=== PATIENT | female | born 1960 | race Hispanic/Latino ===

== ENCOUNTER 2017-12-05 02:18 | Day surgery (SDC) | payer OTHER ==
[2017-12-03 14:48] VITALS: BP 150/86
--- NOTE | 2017-12-03 15:04 | PCM.EKG ---
[facility] Test Date: 2017-12-03 Test Time: 15:03:53 Pat Name: ISADORA DOUGLAS Department: [id number] Room: Gender: F Hold Worker: SHAWN : 1960 Requested By: IHSAN KHAN Order Number: [id number] Reading MD: Trevon Chase Measurements Intervals [place] Rate: 70 P: 45 MD: 162 QRS: 36 QRSD: 88 T: 23 QT: 416 QTc: 449 Interpretive Statements Normal sinus rhythm Normal ECG No previous ECG available for comparison Electronically Signed On 12-05-2017 11:26:00 CDT by Trevon Chase Please click the below link to view image of tracing.
[2017-12-03 16:08] LABS: BASOPHIL % 0.2 % (0.0-0.2); EOSINOPHIL # 0.2 10^3/uL (0.0-0.2); EOSINOPHIL % 2.2 % (0.0-5.0); HEMOGLOBIN 13.9 g/dL (12.0-15.0); LYMPHOCYTES # 3.6 10^3/uL (1.0-4.8); LYMPHOCYTES % 36.4 % (24.0-44.0); MEAN CELL HGB 26.3 pg (26-34); MEAN CELL HGB CONCENTRATION 32.6 g/dL (33-37); MEAN CORP VOLUME 80.5 fL (78-100); MEAN PLATELET VOLUME 10.9 fL (7.8-11.0); MONOCYTES # 0.9 10^3/uL (0.3-0.8); MONOCYTES % 8.8 % (5.0-12.0); NEUTROPHIL # 5.1 10^3/uL (1.8-7.7); RED CELL DISTRIBUTION WIDTH 14.2 % (11.5-14.5); WHITE BLOOD CELL 9.7 10^3/uL (4.5-11.0)
[2017-12-03 16:27] LABS: CALCIUM 9.2 mg/dL (8.4-10.5); CARBON DIOXIDE 25.1 mmol/L (20.0-32)
[2017-12-05] VITALS (13 sets, daily range): BP systolic 147–170; BP diastolic 70–95
[~2017-12-05] VITALS: Ht 156.2 cm; Wt 77.1 kg
[~2017-12-05 02:18] MED LIST: INSU100V11 SQ; INSU200I4 SQ; LEVO175T2 PO; LINA5TAB PO; METO25TA4 PO
[2017-12-05] MEDS ORDERED: NS 100ML 100 ML IV ONE ×2 (05:15→07:42)
[2017-12-05] MEDS ORDERED: ANCEF ONE ×2 (05:15→07:42)
[2017-12-05] MEDS ORDERED: LACTATED RINGERS 1,000 ML ONE (05:15)
[2017-12-05] MEDS ORDERED: LACTATED RINGERS 1,000 ML IV SCH ×2 (06:00→08:30)
[2017-12-05] MEDS ORDERED: DECADRON ONE (06:41)
[2017-12-05] MEDS ORDERED: ZOFRAN ONE (06:41)
[2017-12-05] MEDS ORDERED: NEOSTIGMINE ONE (06:41)
[2017-12-05] MEDS ORDERED: ZEMURON IV ONE (06:42)
[2017-12-05] MEDS ORDERED: VERSED ONE (06:42)
[2017-12-05] MEDS ORDERED: DIPRIVAN IV ONE (06:42)
[2017-12-05] MEDS ORDERED: SUBLIMAZE ONE (06:42)
[2017-12-05] MEDS ORDERED: LIDOCAINE 2% VIAL ONE (06:43)
[2017-12-05] MEDS ORDERED: NAROPIN 0.5% 5 MG/ML VIAL ONE (06:43)
[2017-12-05] MEDS ORDERED: CLONIDINE 1,000 MCG/10 ML VIAL EP ONE (06:44)
[2017-12-05] MEDS ORDERED: QUELICIN ONE (06:44)
[2017-12-05] MEDS ORDERED: XYLOCAINE 2%-EPI 1:100,000 ONE (06:58)
[2017-12-05] MEDS ORDERED: NS 3000ML IRR IR ONE (06:58)
[2017-12-05] MEDS ORDERED: SODIUM CHLORIDE IR ONE (06:58)
[2017-12-05] MEDS ORDERED: DILAUDID IV PRN (08:30)
[2017-12-05] MEDS ORDERED: SUBLIMAZE IV PRN (08:30)
[2017-12-05] MEDS ORDERED: PHENERGAN IV PRN (08:30)
[2017-12-05] MEDS ORDERED: ZOFRAN IV PRN (08:30)
[2017-12-05] MEDS ORDERED: TRAM-47 PO (10:07)
--- NOTE | 2017-12-05 11:21 | OPH ---
DATE OF SURGERY: 12/05/2017 PREOPERATIVE DIAGNOSES: 1. Biceps tendinitis of the right shoulder. 2. Partial thickness rotator cuff tear, right shoulder. POSTOPERATIVE DIAGNOSES: 1. Biceps tendinitis, right shoulder. 2. Impingement, right shoulder. OPERATIVE PROCEDURE: 1. Arthroscopy of the right shoulder with an acromioplasty. 2. Biceps tenolysis, right shoulder. SURGEON: Matias Dietrich MD ANESTHESIA: General endotracheal. BLOOD LOSS: 50 mL. DRAINS: None. DESCRIPTION OF INDICATIONS: The patient is a 57-year-old female with a 9-year history of pain about the shoulder. She has had formal physical therapy as well as Advil. She complains of pain at night as well as painful popping, especially with overhead activities. She has full range of motion about the shoulders. There is tenderness about the biceps tendon. Speed's test is positive. She has no weakness. She demonstrates a positive impingement sign. Plain x-rays were negative for any arthritic changes or calcifications. The MRI scan was read out as having a partial thickness tear about the supraspinatus tendon from 25 to 50% as well as some biceps tendinitis about the right shoulder. Because of continued pain, the patient was taken to the operating room for the above procedure. DESCRIPTION OF PROCEDURE: The patient was placed on the operating table in the supine position. A general endotracheal anesthetic was induced without difficulty. The patient was then placed in the beach chair position. The right upper extremity was sterilely prepped and draped. The arthroscope was introduced through a posterior portal. The glenohumeral joint showed some minor arthritic changes about the glenoid. No exposed subchondral bone. There was some fraying of the insertion of the biceps tendon into the glenoid. From the articular side, I could not demonstrate any rotator cuff tears. The labrum was normal. From the anterior portal, the Arthrowand was introduced and a biceps tenolysis was performed of the biceps at the insertion into the superior portion of the glenoid. The patient then had the arthroscope placed in the subacromial position. Through a lateral portal, a bursectomy was performed with the shaver. The Arthrowand was used to clear any soft tissue from the acromion. Arthroscopically, the patient had a type 2-3 acromion. The patient then had a 4 mm herber introduced from the lateral portal. The acromioplasty was performed. The rotator cuff was viewed from the bursal side and I could not demonstrate any full thickness rotator cuff tears. The patient then had the arthroscopic equipment removed from the shoulder. The portal tracts were closed with interrupted 3-0 Ethilon. A sterile Aquacel dressing was applied. The patient was extubated in the operating room, sent to recovery in stable condition. Matias Dietrich MD DR: SHELDON/myles JOB# [id number]
== END 2017-12-05 12:05 | disposition home or self-care (01) | DRG 558 ==
LOC: SDC 02:18
PROVIDERS: ATTEND Orthopaedic Surgery
DX: M75.21 Bicipital tendinitis, right shoulder (principal); M25.811 Other specified joint disorders, right shoulder; I10 Essential (primary) hypertension; E11.9 Type 2 diabetes mellitus without complications; K21.9 Gastro-esophageal reflux disease without esophagitis; E05.90 Thyrotoxicosis, unspecified without thyrotoxic crisis or storm; E66.9 Obesity, unspecified; Z98.890 Other specified postprocedural states; Z83.3 Family history of diabetes mellitus; Z82.49 Family history of ischemic heart disease and other diseases of the circulatory system; Z88.0 Allergy status to penicillin; Z79.899 Other long term (current) drug therapy; Z68.31 Body mass index [BMI] 31.0-31.9, adult
CPT/HCPCS: 29826; 29828; 36415; 64415; 80053; 82948 ×2; 85025; 93005; A4649 ×6; J0330; J0690 ×2; J1100; J2001; J2250; J2405; J2710; J2795; J3010; J3490 ×2; J7030 ×2; J7050 ×2; J7120

== ENCOUNTER → 2018-04-08 | Outpatient (CLI) | payer OTHER ==
[~2018-04-08] MED LIST changes: +TRAM-47 PO
--- NOTE | 2018-04-08 13:07 | DIREP ---
PROCEDURE:CT ABD/PELVIS W/WO COMPARISON:None. INDICATIONS:A04.8 HELICOBACTER PYLORI TECHNIQUE: Axial images were obtained through the abdomen and pelvis with and without the administration of IV contrast. Oral contrast was administered. The examination is supplemented with sagittal and coronal reconstructions. FINDINGS: LOWER CHEST: The lung bases appear clear of focal consolidation. No evidence of pleural effusion. LIVER: Generous in size. A focal lesion is not detected. BILIARY: Cholecystectomy. PANCREAS: No lesion, inflammatory changes, fluid collection, ductal dilatation, or atrophy. SPLEEN: No enlargement. No focal lesion. KIDNEYS: No mass. No calcification. No obstruction. ADRENALS: No mass or enlargement. AORTA/VASCULAR: No aneurysm or dissection. RETROPERITONEUM: No mass or adenopathy. BOWEL/MESENTERY: The appendix is not visualized. There is no pericecal inflammation or fluid collection to suggest appendicitis. No small bowel dilatation or bowel wall thickening. No mesenteric inflammatory changes. There is no free air or free fluid. ABDOMINAL WALL: No mass or hernia. Left-sided infraumbilical cellulitis. PELVIS: The uterus is mildly enlarged with lobular contour raising question of leiomyomatous changes. No visible mass. No adenopathy. Evaluation of the urinary bladder is limited due to an empty bladder. No visible focal bladder wall thickening or intraluminal calculus. Single left adnexal metallic clips suggesting tubal ligation clip. No visible clip on the right. BONES: No bony lesion or acute fracture. OTHER: Negative. CONCLUSION: 1. An acute intra-abdominal abnormality is not demonstrated. Dictated by: Moy Galindo M.D. on 04/08/2018 at 12:57 PM
== END | disposition home or self-care (01) ==
LOC: RAD 11:22
PROVIDERS: ATTEND Nurse Practitioner Family
DX: A04.8 Other specified bacterial intestinal infections (principal); L03.316 Cellulitis of umbilicus; N85.2 Hypertrophy of uterus
CPT/HCPCS: 36415; 74178; 82565; Q9967

== ENCOUNTER → 2020-01-10 | Outpatient (CLI) | payer BC ==
--- NOTE | 2020-01-10 22:02 | DIREP ---
PROCEDURE:MRI UPPER EXTREM JOINT W O CON LEFT COMPARISON:None. INDICATIONS:SHOULDER PAIN TECHNIQUE:A variety of imaging planes and parameters were utilized for visualization of suspected pathology. Images were performed without contrast. FINDINGS: ROTATOR CUFF REGION CUFF TENDONS:Mild tendinosis of the supraspinatus, infraspinatus and subscapularis. Teres minor tendon is intact. CUFF MUSCLES:Normal appearing muscles. DELTOID:Normal. No significant atrophy or tear. LONG BICEPS TENDON:Tendinosis. Split tear. LABRUM/BICEPS ANCHOR SUPERIOR:Normal. No visible labral tear or biceps anchor pathology. ANTERIOR/INFERIOR:Normal. No visible tear or attrition. POSTERIOR:Normal. No posterior labrum abnormality. CAPSULE ANTERIOR/INFERIOR:Normal. No visible capsular laxity or thickening. POSTERIOR:Normal. No visible capsular laxity or thickening. AC JOINT REGION AC JOINT:Small osteophytes and mild hypertrophy of the capsule. AC LIGAMENTS:Normal acromioclavicular ligament. CC LIGAMENTS:Normal coracoclavicular ligaments. ACROMION:Normal horizontal (Type I) configuration. SUBACROMIAL BURSA:Mild effusion. HYALINE CARTILAGE:Normal. No visible cartilage narrowing or focal defect. OTHER BONES:Normal proximal humerus, glenoid, and coracoid. OTHER OBSERVATIONS:Negative. No other significant findings or glenohumeral effusion. CONCLUSION: 1. Mild tendinosis of the supraspinatus and infraspinous. 2. Biceps tendinosis and split tear. Dictated by: Chilo Ocampo M.D. on 01/10/2020 at 09:56 PM
== END | disposition home or self-care (01) ==
LOC: RAD 14:09
PROVIDERS: ATTEND Orthopaedic Surgery
DX: S46.812A Strain of other muscles, fascia and tendons at shoulder and upper arm level, left arm, initial encounter (principal); M25.412 Effusion, left shoulder; M75.22 Bicipital tendinitis, left shoulder; X58.XXXA Exposure to other specified factors, initial encounter; Y93.89 Activity, other specified; Y92.89 Other specified places as the place of occurrence of the external cause; Y99.8 Other external cause status
CPT/HCPCS: 73221

== ENCOUNTER 2021-01-28 13:03 | Emergency (ER) | payer BC ==
[~2021-01-28] VITALS: Ht 157.5 cm; Wt 82.6 kg
--- NOTE | 2021-01-28 13:14 | NUR ---
ARRIVAL PT ARRIVED TO ED WITH C/O RLQ PAIN, DIZZINESS, THE FEELING OF FALLING AND ABOUT TO PASS OUT, EARACHE FOR 1 WEEK WITH INCREASED PAIN TODAY. BEDSIDE MONITORS APPLIED. VITAL SIGNS STABLE. BED IN LOW LOCKED POSITION. SON AT BEDSIDE. RT CALLED FOR EKG. 20G IV PLACED TO LEFT AC WITH BLOOD COLLECTED AND SENT TO LAB.
[2021-01-28 13:25] VITALS: BP 184/91
[2021-01-28 13:25] LABS: BASOPHIL % 0.3 % (0.0-0.2); EOSINOPHIL # 0.2 10^3/uL (0.0-0.2); EOSINOPHIL % 2.1 % (0.0-5.0); LYMPHOCYTES # 2.64 10^3/uL1 (1.0-4.8); LYMPHOCYTES % 30.1 % (24.0-44.0); MEAN CORP HGB 26.7 pg (26-34); MONOCYTES # 0.6 10^3/uL (0.3-0.8); MONOCYTES % 7.2 % (5.0-12.0); NEUTROPHIL # 5.2 10^3/uL (1.8-7.7); NEUTROPHILS % 59.7 % (41.0-85.0); PLATELET COUNT 317 10^3/uL (150-400); RED CELL DISTRIBUTION WIDTH 14.7 % (11.5-14.5)
[2021-01-28 13:31] LABS: BILIRUBIN,URINE NEGATIVE (NEGATIVE); UROBILINOGEN,URINE 0.2 E.U./dL (0.2)
--- NOTE | 2021-01-28 13:40 | DIREP ---
PROCEDURE:CHEST 1 VIEW COMPARISON:CT, CT ABD/PELVIS W/WO, 04/08/2018, 11:37 AM. INDICATIONS:Dizziness FINDINGS: LUNGS/PLEURA:Mild pulmonary hyperinflation. Diffuse interstitial prominence, likely senescent change. No consolidation, effusion, or pneumothorax. VASCULATURE:Normal. Unremarkable pulmonary vasculature. CARDIAC:Normal. No cardiac silhouette abnormality or cardiomegaly. MEDIASTINUM:Calcified aorta. No visible mass or adenopathy. BONES:Degenerative changes in the spine and shoulders. No acute findings. OTHER:Negative. CONCLUSION:No acute cardiopulmonary abnormality is suspected. No comparison is available. Dictated by: Stefan Mena M.D. on 01/28/2021 at 01:37 PM
[2021-01-28] MEDS ORDERED: ANTIVERT PO STA (13:46)
[2021-01-28] MEDS ORDERED: ANTIVERT ONE (13:47)
--- NOTE | 2021-01-28 13:48 | DIREP ---
PROCEDURE:CT HEAD WITHOUT CONTRAST TECHNIQUE:Axial cuts were obtained through the head, without intravenous contrast material. The images were viewed at brain and bone settings. COMPARISON:None. INDICATIONS:Dizziness FINDINGS: VENTRICLES:There is no hydrocephalus. CEREBRUM:There is no CT evidence of mass, hemorrhage, or acute infarct. CEREBELLUM:Normal. BRAINSTEM:Normal. SKULL:Normal. SINUSES:Normal. OTHER:Negative. CONCLUSION:No acute abnormality is identified. Dictated by: Kashmir Castro MD on 01/28/2021 at 01:45 PM
--- NOTE | 2021-01-28 13:49 | ER.PDOC ---
General Chief Complaint: Dizziness Stated Complaint: DIZZINESS Time seen by MD: 13:47 Source: patient Exam Limitations: no limitations History of Present Illness Initial Comments Patient has had dizziness on and off for months but is progressively gotten worse for the last 1 week. No chest pain or shortness of breath. Episodes are intermittent. Occurred: last week Severity: moderate Associated Symptoms: sense of movement Usually: walks w/o assistance Worsened By: changing position, movement of head Prior symptoms/Treatment: Similar symptoms previous Allergies: Coded Allergies: Penicillins (Verified Allergy, Unknown, ITCHING,RASH, 12/03/17) Home Meds Reported Medications Tramadol Hcl (ULTRAM) 50 Mg Tablet, 1 TAB PO Q6, #20 TAB 1 Refill 12/05/17 Insulin Degludec (Tresiba Flextouch U-200) 200 Unit/Ml (3 Ml) Insuln.pen, 38 UNIT SQ HS 12/03/17 Insulin Regular, Human (NOVOLIN R) 100 Unit/1 Ml Vial, 16 UNITS SQ TIDM INJECT THE NUMBER OF UNITS OF INSULIN SPECIFIED BY PROVIDER 12/03/17 Linagliptin (TRADJENTA) 5 Mg Tablet, 1 TAB PO DAILY, #90 TAB 1 Refill 12/03/17 Levothyroxine Sodium (SYNTHROID) 175 Mcg Tablet, 1 TAB PO DAILY, #30 TAB 5 Refills 12/03/17 Metoprolol Tartrate 25MG (LOPRESSER 25MG) 25 Mg Tablet, 1 TAB PO HS, #180 TAB 1 Refill 12/03/17 Past Medical History Medical History: diabetes, hypertension, thyroid disease Surgical History: appendectomy, shoulder, tonsillectomy, other Family History Significant Family History: no pertinent family hx Social History Smoking: non-smoker Alcohol Use: none Drug Use: none Review of Systems Constitutional: no symptoms reported Ears: dizziness Nose: no symptoms reported Mouth: no symptoms reported Throat: no symptoms reported Respiratory: no symptoms reported Cardiovascular: no symptoms reported All Other Systems: Reviewed and Negative Physical Exam General Appearance: alert, no distress Neck: supple Respiratory: no resp distress, breath sounds nml CVS: reg rate & rhythm, heart sounds.nml Abdomen: non-tender, no organomegaly, no distention Skin: color nml, no rash, warm/dry Extremities: non-tender, nml ROM, no pedal edema Neuro/Psych: nml orientation, nml speech/cognition, nml mood/affect Cranial Nerves: nml as tested, no evidence of acute CVA Sensorimotor: nml motor, nml sensation Results/Orders Results/Orders Orders - DEBBIE SRIVASTAVA MD Cbc With Auto Diff (01/28/21 13:10) Comprehensive Metabolic Panel (01/28/21 13:10) Creatine Kinase (01/28/21 13:10) Creatine Kinase Mb (01/28/21 13:10) PT (01/28/21 13:10) Partial Thromboplastin Time. (01/28/21 13:10) Xr Chest 1v (01/28/21 13:10) Ct Head Wo Contrast (01/28/21 13:10) Urinalysis (01/28/21 13:10) Ekg-Routine (01/28/21 13:10) Troponin I (01/28/21 13:10) Meclizine Hcl (Antivert) (01/28/21 13:46) Meclizine Hcl (Antivert) (01/28/21 13:47) Thyroid Stimulating Horm(Ml) (01/28/21 13:49) Vital Signs Date Time Temp Pulse Resp B/P (MAP) Pulse Ox O2 Delivery O2 Flow Rate FiO2 01/28/21 14:16 98.7 75 18 161/80 (107) 100 Room Air 01/28/21 13:25 98.7 83 18 01/28/21 13:25 98.7 83 18 184/91 (122) 100 Room Air 01/28/21 13:25 98.7 83 18 100 Administered Medications Medications (Trade) Dose Ordered Sig/Geetha Route PRN Reason Start Time Stop Time Status Last Admin Dose Admin Meclizine HCl (Antivert) 25 mg STAT STAT PO 01/28/21 13:46 01/28/21 13:48 DC 01/28/21 13:49 25 MG Laboratory Tests Test 01/28/21 13:20 White Blood Count 8.8 10^3/uL (4.5-11.0) Red Blood Count 5.25 10^6/uL (4.00-5.20) H Hemoglobin 14.0 g/dL (12.0-15.0) Hematocrit 45.2 % (36.0-46.0) Mean Corpuscular Volume 86.1 fL (78-100) Mean Corpuscular Hemoglobin 26.7 pg (26-34) Mean Corpuscular Hemoglobin Concent 31.0 g/dL (33-36.5) L Red Cell Distribution Width 14.7 % (11.5-14.5) H Platelet Count 317 10^3/uL (150-400) Mean Platelet Volume 9.6 fL (7.8-11.0) Neutrophils (%) (Auto) 59.7 % (41.0-85.0) Lymphocytes (%) (Auto) 30.1 % (24.0-44.0) Monocytes (%) (Auto) 7.2 % (5.0-12.0) Neutrophils # (Auto) 5.2 10^3/uL (1.8-7.7) Lymphocytes # (Auto) 2.64 10^3/uL1 (1.0-4.8) Monocytes # (Auto) 0.6 10^3/uL (0.3-0.8) Absolute Immature Granulocyte (auto 0.05 10^3 u/L (0-2) Absolute Eosinophils (auto) 0.2 10^3/uL (0.0-0.2) Immature Granulocytes % 0.60 % (0.00-0.50) H Eosinophils % 2.1 % (0.0-5.0) Basophils % 0.3 % (0.0-0.2) H Basophils # 0.0 10^3/uL (0.0-0.1) Prothrombin Time 9.7 SEC (9.6-12.0) Prothrombin Time INR (Non-Therap) 0.9 Activated Partial Thromboplast Time 22.5 SEC (24.67-30.72) Urine Collection Type RANDOM Urine Color YELLOW Urine Appearance CLEAR Urine Bilirubin NEGATIVE (NEGATIVE) Urine Ketones NEGATIVE (NEGATIVE) Urine Specific [place] 1.025 (1.005-1.030) Urine pH 5.5 (4.5-8.0) Urine Protein NEGATIVE (NEGATIVE) Urine Urobilinogen 0.2 E.U./dL (0.2) Urine Nitrate NEGATIVE (NEGATIVE) Urine Leukocyte Esterase NEGATIVE (NEGATIVE) Urine Glucose (Auto)(UA) 500 (NEGATIVE) H Urine Blood NEGATIVE (NEGATIVE) Sodium Level 139 mmol/L (132-145) Potassium Level 3.7 mmol/L (3.6-5.2) Chloride Level 104.0 mmol/L (96-109) Carbon Dioxide Level 27.5 mmol/L (20.0-32) Anion Gap 11.2 Blood Urea Nitrogen 14 mg/dL (7-18) Creatinine 0.71 mg/dL (0.59-1.40) Estimated GFR () 101.6 (>/=60) Est GFR (CKD-EPI)(Non-Afr Brazilian) 84.0 (>/=60) BUN/Creatinine Ratio 19.0 Glucose Level 172 mg/dL (70-110) H Calcium Level 8.7 mg/dL (8.4-10.5) Total Bilirubin 0.9 mg/dL (0.2-1.0) Aspartate Amino Transferase (AST) 29 U/L (0-35) Alanine Aminotransferase (ALT) 32 U/L (12-78) Alkaline Phosphatase 169 U/L (50-136) H Total Creatine Kinase 190 U/L (26-192) Creatine Kinase MB 4.4 ng/mL (0.5-3.6) H Troponin I < 0.02 ng/mL (0.00-0.05) Total Protein 7.5 g/dL (6.4-8.2) Albumin 3.3 g/dL (3.4-5.0) L Globulin 4.2 Albumin/Globulin Ratio 0.785 Thyroid Stimulating Hormone (TSH) 1.960 mIU/mL (0.358-3.740) Progress Progress CBC is unremarkable. Chemistry significant for blood sugar of 172 and ALT of 169. Rest of chemistries are unremarkable. Urinalysis is normal. Cardiac enzymes are unremarkable. CT head and chest x-ray shows nothing acute. Patient received meclizine and she is feeling better. EKG/XRAY/CT/US XRAY: chest (No active disease) CT Comments: No acute intracranial abnormality ER DEPART Departure Time of Disposition: 14:44 Disposition: 01 HOME / SELF CARE / HOMELESS Impression: Primary Impression: Vertigo Condition: Improved Referrals: DOMINIC BAUMANN DO (PCP) PRIMARY CARE PROVIDER Additional Instructions: [place] Follow-up with your PCP in 2 to 3 days Follow-up with ENT this week Return to ED if worsening symptoms or concerns Duration or Time Spent with Pa: 45 min DEBBIE SRIVASTAVA MD Jan 28, 2021 13:49
[2021-01-28 13:51] LABS: ALANINE AMINOTRANSFERASE(ML) 32 U/L (12-78); ALKALINE PHOSPHATASE 169 U/L (50-136); ASPARTATE AMINO TRANSFERASE 29 U/L (0-35); CALCIUM 8.7 mg/dL (8.4-10.5); CARBON DIOXIDE 27.5 mmol/L (20.0-32); GLUCOSE 172 mg/dL (70-110)
[2021-01-28 14:16] VITALS: BP 161/80
[2021-01-28] MEDS ORDERED: TORADOL IV STA (14:46)
[2021-01-28] MEDS ORDERED: TORADOL ONE (14:47)
--- NOTE | 2021-01-28 14:51 | PCM.EKG ---
[facility] Test Date: 2021-01-28 Test Time: 14:49:33 Pat Name: ISADORA DOUGLAS Department: Patient ID: [id number] Room: Gender: F Nurse Anesthetist: DIANE : 1960 Requested By: DEBBIE SRIVASTAVA Order Number: [id number] Reading MD: Debbie SRIVASTAVA Measurements Intervals [place] Rate: 72 P: 21 [place]: 167 QRS: 32 QRSD: 88 T: 32 QT: 395 QTc: 433 Interpretive Statements Sinus rhythm Compared to ECG 12/03/2017 15:03:53 No significant changes Electronically Signed On 01-29-2021 7:33:11 CDT by Debbie SRIVASTAVA Please click the below link to view image of tracing.
== END 2021-01-28 14:57 | disposition home or self-care (01) ==
LOC: ER 13:03
DX: R42 Dizziness and giddiness (principal); E07.9 Disorder of thyroid, unspecified; E11.9 Type 2 diabetes mellitus without complications; I10 Essential (primary) hypertension; Z79.4 Long term (current) use of insulin; Z79.899 Other long term (current) drug therapy; Z88.0 Allergy status to penicillin; Z90.49 Acquired absence of other specified parts of digestive tract
CPT/HCPCS: 36415; 70450; 71045; 80050; 81003; 82550; 82553; 84484; 85610; 85730; 93005; 96374; 99285; J1885; 80053; 84443; 85025; J8597

== ENCOUNTER 2021-06-10 14:53 | Emergency (ER) | payer BC ==
[~2021-06-10] VITALS: Ht 165.1 cm; Wt 83.9 kg
[2021-06-10 15:31] LABS: BILIRUBIN,URINE NEGATIVE (NEGATIVE); UROBILINOGEN,URINE 0.2 E.U./dL (0.2)
[2021-06-10 17:12] VITALS: BP 158/73
[2021-06-10] MEDS ORDERED: TORADOL IV STA (18:52)
--- NOTE | 2021-06-10 19:02 | ER.PDOC ---
General Chief Complaint: Extremities Stated Complaint: LOWER BACK PAIN Time seen by MD: 18:45 Source: patient Exam Limitations: no limitations History of Present Illness Initial Comments Patient is a 61-year-old woman who presents to the emergency department with complaint of left flank pain and leg pain that began 5 days ago. She states she began having pain behind her left knee that now is around her left hip and left flank region she states the pain is constant, worsening, unchanged with movement. She states she did have some sort of spider vein procedure done in March however has not had any problems since that time. She denies any numbness or weakness of the legs in general however does have a numb spot over the anterior aspect of her left thigh. She denies any loss of bowel or bladder control. She denies any dysuria, frequency, urgency, hematuria. She denies any nausea, vomiting, diarrhea, black or bloody stools. She denies any trauma. She denies any unusual heavy lifting. She denies any nasal congestion, sore throat, cough, fever. Timing/Duration: other (5 days) Severity/Quality: moderate, cramping Radiation: epigastric Exacerbated by: nothing Relieved By: nothing Allergies: Coded Allergies: Penicillins (Verified Allergy, Unknown, ITCHING,RASH, 12/03/17) Home Meds Reported Medications Tramadol Hcl (ULTRAM) 50 Mg Tablet, 1 TAB PO Q6, #20 TAB 1 Refill 12/05/17 Insulin Degludec (Tresiba Flextouch U-200) 200 Unit/Ml (3 Ml) Insuln.pen, 38 UNIT SQ HS 12/03/17 Insulin Regular, Human (NOVOLIN R) 100 Unit/1 Ml Vial, 16 UNITS SQ TIDM INJECT THE NUMBER OF UNITS OF INSULIN SPECIFIED BY PROVIDER 12/03/17 Linagliptin (TRADJENTA) 5 Mg Tablet, 1 TAB PO DAILY, #90 TAB 1 Refill 12/03/17 Levothyroxine Sodium (SYNTHROID) 175 Mcg Tablet, 1 TAB PO DAILY, #30 TAB 5 Refills 12/03/17 Metoprolol Tartrate 25MG (LOPRESSER 25MG) 25 Mg Tablet, 1 TAB PO HS, #180 TAB 1 Refill 12/03/17 Vital Signs First Vital Signs Date Time Temp Pulse Resp B/P (MAP) Pulse Ox O2 Delivery O2 Flow Rate FiO2 06/10/21 17:12 98.9 69 20 06/10/21 17:12 97 Last Vital Signs Date Time Temp Pulse Resp B/P (MAP) Pulse Ox O2 Delivery O2 Flow Rate FiO2 06/10/21 17:19 98.9 69 20 97 Past Medical History Medical History: diabetes, thyroid disease Surgical History: other Family History Significant Family History: diabetes Social History Smoking: non-smoker Alcohol Use: none Drug Use: none Constitutional: denies fever EENTM: denies nose congestion, denies throat pain Respiratory: denies cough, denies shortness of breath Cardiovascular: denies chest pain Gastrointestinal: denies abdominal pain, denies diarrhea, denies nausea, denies vomiting Genitourinary: denies dysuria, denies frequency, denies hematuria Musculoskeletal: back pain Skin: denies rash Hematologic/Lymphatic: denies easy bleeding All Other Systems: Reviewed and Negative Physical Exam General Appearance: No Apparent Distress, WD/WN HEENT: PERRL/EOMI, Normal ENT Inspection, Pharynx Normal Neck: Non-Tender, Full Range of Motion, Supple, Normal Inspection Respiratory: chest non-tender, lungs clear, normal breath sounds, no respiratory distress, no accessory muscle use Cardiovascular: Normal Peripheral Pulses, Regular Rate, Rhythm, No Edema, No Murmur Gastrointestinal: Normal Bowel Sounds, No Organomegaly, No Pulsatile Mass, Soft, Tenderness (epigastric) Back: Normal Inspection, No CVA Tenderness, No Vertebral Tenderness Extremities: Normal Range of Motion, Non-Tender, Normal Inspection, No Pedal Edema, No Calf Tenderness, Normal Capillary Refill, Pelvis Stable Neurologic/Psychiatric: under cutter II-XII NML as Tested, No Motor/Sensory Deficits, Alert, Normal Mood/Affect, Oriented x 3 Skin: Normal Color, Warm/Dry Results/Orders Results/Orders Orders - LUCIA GONZALEZ MD Urinalysis (06/10/21 15:24) Us Bilat Lower Ext Venous Dopp (06/10/21 18:52) Cbc With Auto Diff (06/10/21 18:52) Comprehensive Metabolic Panel (06/10/21 18:52) Lipase (06/10/21 18:52) Ct Abd/Pelvis Wo Iv Contrast (06/10/21 18:52) Saline Lock (06/10/21 18:52) Ketorolac Tromethamine (Toradol) (06/10/21 18:52) Ketorolac Tromethamine (Toradol) (06/10/21 20:37) Vital Signs Date Time Temp Pulse Resp B/P (MAP) Pulse Ox O2 Delivery O2 Flow Rate FiO2 06/10/21 17:19 98.9 69 20 97 06/10/21 17:12 98.9 69 20 97 06/10/21 17:12 98.9 69 20 Administered Medications Medications (Trade) Dose Ordered Sig/Geetha Route PRN Reason Start Time Stop Time Status Last Admin Dose Admin Ketorolac Tromethamine (Toradol) 15 mg OT STAT IV 06/10/21 18:52 06/10/21 18:59 DC 06/10/21 20:36 15 MG Laboratory Tests Test 06/10/21 15:25 06/10/21 20:45 Urine Collection Type RANDOM Urine Color YELLOW Urine Appearance CLEAR Urine Bilirubin NEGATIVE (NEGATIVE) Urine Ketones NEGATIVE (NEGATIVE) Urine Specific [place] 1.020 (1.005-1.030) Urine pH 6.0 (4.5-8.0) Urine Protein NEGATIVE (NEGATIVE) Urine Urobilinogen 0.2 E.U./dL (0.2) Urine Nitrate NEGATIVE (NEGATIVE) Urine Leukocyte Esterase NEGATIVE (NEGATIVE) Urine Glucose (Auto)(UA) >=1000 mg/dL (NEGATIVE) H Urine Blood NEGATIVE (NEGATIVE) White Blood Count 5.9 10^3/uL (4.5-11.0) Red Blood Count 5.31 10^6/uL (4.00-5.20) H Hemoglobin 14.6 g/dL (12.0-15.0) Hematocrit 46.0 % (36.0-46.0) Mean Corpuscular Volume 86.6 fL (78-100) Mean Corpuscular Hemoglobin 27.5 pg (26-34) Mean Corpuscular Hemoglobin Concent 31.7 g/dL (33-36.5) L Red Cell Distribution Width 15.6 % (11.5-14.5) H Platelet Count 258 10^3/uL (150-400) Mean Platelet Volume 10.2 fL (7.8-11.0) Neutrophils (%) (Auto) 57.8 % (41.0-85.0) Lymphocytes (%) (Auto) 27.0 % (24.0-44.0) Monocytes (%) (Auto) 13.5 % (5.0-12.0) H Neutrophils # (Auto) 3.4 10^3/uL (1.8-7.7) Lymphocytes # (Auto) 1.58 10^3/uL1 (1.0-4.8) Monocytes # (Auto) 0.8 10^3/uL (0.3-0.8) Absolute Immature Granulocyte (auto 0.05 10^3 u/L (0-2) Absolute Eosinophils (auto) 0.0 10^3/uL (0.0-0.2) Immature Granulocytes % 0.90 % (0.00-0.50) H Eosinophils % 0.5 % (0.0-5.0) Basophils % 0.3 % (0.0-0.2) H Basophils # 0.0 10^3/uL (0.0-0.1) Sodium Level 137 mmol/L (132-145) Potassium Level 4.1 mmol/L (3.6-5.2) Chloride Level 102.0 mmol/L (96-109) Carbon Dioxide Level 27.2 mmol/L (20.0-32) Anion Gap 11.9 Blood Urea Nitrogen 13 mg/dL (7-18) Creatinine 0.72 mg/dL (0.59-1.40) Estimated GFR () 99.6 (>/=60) Est GFR (CKD-EPI)(Non-Afr [place]) 82.3 (>/=60) BUN/Creatinine Ratio 18.0 Glucose Level 116 mg/dL (70-110) H Calcium Level 8.6 mg/dL (8.4-10.5) Total Bilirubin 0.6 mg/dL (0.2-1.0) Aspartate Amino Transferase (AST) 26 U/L (0-35) Alanine Aminotransferase (ALT) 31 U/L (12-78) Alkaline Phosphatase 192 U/L (50-136) H Total Protein 7.9 g/dL (6.4-8.2) Albumin 3.4 g/dL (3.4-5.0) Globulin 4.5 Albumin/Globulin Ratio 0.755 Lipase 92 U/L (114-286) L Progress Progress Patient had an IV established and was given ketorolac 15 mg IV with improvement in her pain. She had a CBC that was normal. CMP that was essentially normal. Her UA showed glucose but was negative for infection or blood. She had Doppler venous studies that were both negative. CT of the abdomen pelvis showed mild to moderate colonic stool burden and hepatomegaly with small low-density lesion however no other acute abnormalities. On reevaluation she states her pain is much improved and she is feeling much better impression she likely has abdominal pain from some constipation and low back pain with radiculopathy. She does not appear to have acute cholecystitis, pancreatitis, small bowel obstruction, perforated intestine, acute appendicitis, diverticulitis, kidney stone, Pyelonephritis, Aortic dissection, aortic aneurysm, or dehydration, sepsis, or other serious etiology of her symptoms. Patient be discharged home. ER DEPART Departure Time of Disposition: 22:06 Disposition: 01 HOME / SELF CARE / HOMELESS Impression: Primary Impression: Lumbar radiculopathy Additional Impressions: Constipation Hepatomegaly Condition: Stable Referrals: DOMINIC BAUMANN DO (PCP) PRIMARY CARE PROVIDER Additional Instructions: Return immediately if severe pain, numbness or weakness to legs, loss of bowel or bladder control, fever. Rest, warm compresses for 20 minutes 3 times a day. Prednisone and methocarbamol as prescribed. Ibuprofen 800 mg by mouth every 8 hours as needed for pain [id number]. Acetaminophen 1000 mg by mouth every 8 hours as needed for pain [id number]. Follow-up with primary care physician in 2 to 3 days. Duration or Time Spent with Pa: 20 min Problem Qualifiers Additional Impressions: Constipation Constipation type: unspecified constipation type Qualified Codes: K59.00 - Constipation, unspecified LUCIA GONZALEZ MD Jun 10, 2021 19:02
--- NOTE | 2021-06-10 20:19 | DIREP ---
PROCEDURE:CT ABDOMEN/PELVIS W/O CONTRAST COMPARISON:None. INDICATIONS:flank pain TECHNIQUE:Axial images were created through the abdomen and pelvis without intravenous contrast material. No oral contrast was administered. Sagittal and coronal reconstructions were performed from source images. FINDINGS: LUNG BASES:No abnormality LIVER:Enlarged. Focal contour undulation inferiorly in segment 5 of the liver with a low-density area suggested on the coronal images measuring 1.8 cm. BILIARY:Cholecystectomy, no intra or extrahepatic biliary dilation. PANCREAS:Unremarkable. SPLEEN:Normal, nonenlarged. KIDNEYS:No renal mass on noncontrast exam. No hydronephrosis or collecting system stone identified. No focal or asymmetric perinephric stranding. ADRENALS:Normal. AORTA/VASCULAR:Normal. No aneurysm. RETROPERITONEUM:No adenopathy or mass. BOWEL/MESENTERY:No evidence of small bowel obstruction. Appendectomy. Mild to moderate colonic stool burden suggesting constipation. ABDOMINAL WALL:Small left inguinal hernia containing fat. URINARY BLADDER: Inherently limited evaluation of the wall; unremarkable for level of distension. PELVIS:Uterus present, no adnexal mass. No adenopathy. BONES:No bony lesion or fracture. OTHER:No free air or fluid. CONCLUSION: 1. No ureteral stone, hydronephrosis, focal or asymmetric perinephric stranding. 2. Mild to moderate colonic stool burden suggesting constipation. 3. Hepatomegaly and possible small low-density lesion. Consider follow-up MRI abdomen with and without contrast for further evaluation. Dictated by: Romana Manuel MD on 06/10/2021 at 08:13 PM
[2021-06-10] MEDS ORDERED: TORADOL ONE (20:37)
[2021-06-10 20:56] LABS: BASOPHIL % 0.3 % (0.0-0.2); EOSINOPHIL % 0.5 % (0.0-5.0); LYMPHOCYTES # 1.58 10^3/uL1 (1.0-4.8); MEAN CORP HGB 27.5 pg (26-34); MONOCYTES # 0.8 10^3/uL (0.3-0.8); MONOCYTES % 13.5 % (5.0-12.0); NEUTROPHIL # 3.4 10^3/uL (1.8-7.7); NEUTROPHILS % 57.8 % (41.0-85.0); PLATELET COUNT 258 10^3/uL (150-400); RED CELL DISTRIBUTION WIDTH 15.6 % (11.5-14.5)
[2021-06-10 21:12] LABS: CARBON DIOXIDE 27.2 mmol/L (20.0-32)
--- NOTE | 2021-06-10 21:16 | DIREP ---
PROCEDURE:US VENOUS IMAGING BILAT COMPARISON:None. INDICATIONS:leg pain TECHNIQUE:The lower extremities were evaluated utilizing garcia scale images with segmental compression, color Doppler, and spectral Doppler with respiratory variation and augmentation. FINDINGS: RIGHT Common femoral vein:Patent Profunda femoris: Patent Superficial femoral vein:Patent Popliteal vein:Patent Posterior tibial vein:Patent Peroneal vein: Patent Greater saphenous vein:Patent Waveforms: Within normal limits. LEFT Common femoral vein:Patent Profunda femoris: Patent Superficial femoral vein:Patent Popliteal vein:Patent Posterior tibial vein:Patent Peroneal vein: Patent Greater saphenous vein:Patent Waveforms: Within normal limits. CONCLUSION:No evidence of deep venous thrombosis of the right or left lower extremities. Dictated by: Jose Manuel Phelps M.D. on 06/10/2021 at 09:12 PM
[2021-06-10 22:30] VITALS: BP 134/81
== END 2021-06-10 22:25 | disposition home or self-care (01) ==
LOC: ER 14:53
DX: M54.16 Radiculopathy, lumbar region (principal); K59.00 Constipation, unspecified; R16.0 Hepatomegaly, not elsewhere classified; M25.552 Pain in left hip; E11.9 Type 2 diabetes mellitus without complications; Z79.1 Long term (current) use of non-steroidal anti-inflammatories (NSAID); Z79.4 Long term (current) use of insulin; Z79.899 Other long term (current) drug therapy; Z88.0 Allergy status to penicillin
CPT/HCPCS: 36415; 74176; 80053; 81003; 83690; 85025; 93970; 96374; 99284; J1885